=== PATIENT | female | born 1950 | race Caucasian/White ===

== ENCOUNTER 2022-11-28 23:01 | Emergency (ER) | payer OTHER ==
[~2022-11-28] VITALS: Ht 160 cm; Wt 77.0 kg
[2022-11-28 23:58] VITALS: BP 153/77
[2022-11-29] VITALS (7 sets, daily range): BP systolic 126–152; BP diastolic 66–75
[2022-11-29 00:49] LABS: BASO% 0.2 % (0-3); EOS% 0.7 % (0-8); HEMATOCRIT 42.1 % (37.0-47.0); HEMOGLOBIN 14.3 g/dl (12.0-16.0); IMMATURE GRANULOCYTES 0.5 % (0.0-5.0); LYMPH% 18.3 % (15-41); MEAN CELL VOLUME 89.4 fL CALC (80.0-100.0); MEAN CORPUSCULAR HGB 30.4 pG CALC (26.0-32.0); MONO% 5.8 % (2-13); NEUT# 6.82 thou/uL (2.00-7.15); NEUT% 74.5 % (42-76); RED BLOOD COUNT 4.71 mill/uL (4.20-5.60); RED CELL DISTRI WIDTH 13.8 % (11.5-15.5)
[2022-11-29 00:52] LABS: URINE BILIRUBIN - DIPSTICK NEGATIVE (NEGATIVE); URINE BLOOD DIPSTICK TRACE-INTACT (NEGATIVE); URINE COLOR YELLOW; URINE GLUCOSE - DIPSTICK NEGATIVE (NEGATIVE); URINE KETONE TRACE mg/dL (NEGATIVE); URINE LEUK ESTERASE NEGATIVE (NEGATIVE); URINE NITRITE - DIPSTICK NEGATIVE (Negative); URINE PROTEIN - DIPSTICK NEGATIVE (NEG-TRACE); URINE SPECIFIC GRAVITY <=1.005; URINE UROBILINOGEN - DIPSTICK 0.2 E.U./dL (0.2)
[2022-11-29 01:03] LABS: ACT PARTIAL THROMBO TIME 25.8 SECONDS (20.0-32.5); ALBUMIN 4.7 g/dL (3.2-5.0); ALKALINE PHOSPHATASE 77 u/l (38-126); ANION GAP 13 (6-22 (CALC)); BILIRUBIN, TOTAL 0.2 mg/dL (0.0-1.4); BUN 26 mg/dL (8-23); BUN/CREATININE RATIO 29 (12-20 (CALC)); CARBON DIOXIDE 26 mmol/l (22-30); CHLORIDE 106 mmol/l (95-108); CREATININE 0.9 mg/dL (0.5-1.0); GFR FOR AFR.AMER. > 60 ML/MIN (>=60 (CALC)); GFR OTHER RACES > 60 ML/MIN (>=60 (CALC)); INTERNATIONAL NORMALIZED RATIO 1.1 RATIO (0.7-1.3); POTASSIUM 3.4 mmol/l (3.5-5.1); PROTHROMBIN TIME 10.6 SECONDS (9.0-12.5); SGOT/AST 16 u/l (9-36); SODIUM 142 mmol/l (137-146); TOTAL PROTEIN 7.8 g/dL (6.3-8.2)
[2022-11-29 01:15] LABS: MYOGLOBIN 26 ng/mL (0 - 62)
[2022-11-29 01:18] LABS: D-DIMER 0.41 mg/L (0.19-0.60)
[2022-11-29] MEDS ORDERED: ALPRAZOLAM1 MG PO (01:35)
[2022-11-29] MEDS ORDERED: MONOPRIL10 MG PO (01:36)
[2022-11-29] MEDS ORDERED: NIFEDIPINE ER30 M1 PO (01:39)
[2022-11-29] MEDS ORDERED: HYDROCHLOROT12.5 M1 PO ×2 (01:40→01:41)
[2022-11-29] MEDS ORDERED: TOBREX OPTH5 ML/BTL (01:42)
== END 2022-11-29 02:54 | disposition home or self-care (01) | DRG 310 ==
LOC: ED 23:01
PROVIDERS: Family Medicine
DX: R00.0 Tachycardia, unspecified (principal); E86.0 Dehydration